=== PATIENT | male | born 1970 | race Hispanic/Latino ===

== ENCOUNTER 2018-06-10 08:51 | Inpatient (IN) | payer MEDICAID ==
[2018-06-10 08:53] VITALS: O2SAT 100; BMI 37.8
--- NOTE | 2018-06-10 10:03 | ED PDOC ---
HPI: Psych/Substance Abuse Time Seen by Provider: 06/10/18 09:09 Chief Complaint (Nursing): Psychiatric Evaluation Chief Complaint (Provider): Psychiatric Evaluation History Per: Patient History/Exam Limitations: no limitations Onset/Duration Of Symptoms: Days Current Symptoms Are (Timing): Still Present Associated Symptoms: Depression, Suicidal Thoughts, Suicidal Plan Additional Complaint(s): 48 year old male with a past medical history of depression and hypertension who is presenting to the ED for evaluation of active suicidal ideation with plan and recent attempts. Patient states that this morning he called mobile crisis from a bridge and yesterday attempted to wrap a rope around his neck, but did not hang himself because he states it was "taking too long" and abandoned the attempt. He also reports that he recently bought sleeping pills but realized it would not be a fatal overdose so he did not attempt it. Patient reports stressors from a complicated marriage and job difficulties. Patient has one prior admission in Fall of 2017 for depression but once discharged he never followed up and is not taking any medications. He also denies any alcohol or drug abuse and denies any physical complaints including neck pain, chest pain, or headaches. PMD: can't recall name Past Medical History Reviewed: Historical Data, Nursing Documentation, Vital Signs Vital Signs: Last Vital Signs Temp 98.2 F 06/10/18 08:53 Pulse 81 06/10/18 08:53 Resp 17 06/10/18 08:53 BP 211/144 H 06/10/18 08:53 Pulse Ox 100 06/10/18 08:53 - Medical History PMH: Depression, HTN - Surgical History Surgical History: No Surg Hx - Family History Family History: States: Unknown Family Hx - Social History Current smoker - smoking cessation education provided: No Alcohol: Social Drugs: Denies - Home Medications Home Medications: Ambulatory Orders Medication Instructions Recorded Aspirin [Ecotrin] 81 mg PO DAILY 06/10/18 Losartan [Cozaar] 25 mg PO DAILY 06/10/18 Mirtazapine [Remeron] 30 mg PO HS 06/10/18 amLODIPine [Norvasc] 5 mg PO DAILY 06/10/18 hydroCHLOROthiazide [Hydrodiuril] 25 mg PO DAILY 06/10/18 - Allergies Allergies/Adverse Reactions: Allergies Allergy/AdvReac Type Severity Reaction Status Date / Time No Known Allergies Allergy Verified 03/13/19 09:04 Review of Systems Cardiovascular: Negative for: Chest Pain Musculoskeletal: Negative for: Neck Pain Neurological: Negative for: Headache Psych: Positive for: Depression, Suicidal ideation (with plan ). Negative for: Psychosis Physical Exam - Reviewed Nursing Documentation Reviewed: Yes Vital Signs Reviewed: Yes - Physical Exam Appears: Positive for: Non-toxic, No Acute Distress Head Exam: Positive for: ATRAUMATIC, NORMAL INSPECTION, NORMOCEPHALIC Skin: Positive for: Normal Color, Warm, DRY Eye Exam: Positive for: EOMI, Normal appearance, PERRL ENT: Positive for: Normal ENT Inspection Neck: Positive for: Normal (but with minor ecchymosis laterally no tenderness and full ROM, no palpable hematoma or lacerations ), Painless ROM, Supple Cardiovascular/Chest: Positive for: Regular Rate, Rhythm. Negative for: Murmur Respiratory: Positive for: Normal Breath Sounds. Negative for: Respiratory Distress Gastrointestinal/Abdominal: Positive for: Normal Exam, Soft. Negative for: Tenderness Extremity: Positive for: Normal ROM. Negative for: Deformity, Swelling Neurological/Psych: Positive for: Awake, Alert, Normal Tone, Oriented, Mood/Affect (depressed ), Other (fair insight, poor judgement ). Negative for: Motor/Sensory Deficits - Laboratory Results Result Diagrams: 06/10/18 10:00 06/10/18 10:00 - ECG ECG: Positive for: Interpreted By Me ECG Rhythm: Positive for: Normal QRS, Normal ST Segment, Sinus Rhythm Rate: 80 O2 Sat by Pulse Oximetry: 100 (RA) Pulse Ox Interpretation: Normal - Radiology X-Ray: Read By Radiologist X-Ray Interpretation: No Acute Disease Medical Decision Making Medical Decision Making: Time: 9:36 Plan: 1:1 observation with labs for medical clearance and crisis evaluation Orders: --EKG --Alcohol Serum --CMP --Drug Screen --Troponin --CBC --1:1 Observation --Urinalysis Patient attempted to strangulate self yesterday but currently has no neck pain, SOB or clinical evidence to suggest imaging is currently indicated. He has FROM of neck without stridor, pain or discomfort. labs reviewed and clinically unremarkable EKG reviewed clonidine 0.2mg PO initiated for accelerated HTN, but patient remains a symptomatic. Crisis eval performed and recommends admission Remains 1:1 observation Medically stable for psychiatric admission, will require medical consult on floor for management of asymptomatic hypertension. BP improving in ED, 179/101 on re-eval 1115am. 1230p BP 154/92, remains stable for psych admission. Care transferred to psychiatric/crisis team for inpatient management. --- Scribe Attestation: Documented by Mini Mccollum, acting as a scribe for Nito Ayoub DO. Provider Scribe Attestation: All medical record entries made by the Scribe were at my direction and personally dictated by me. I have reviewed the chart and agree that the record accurately reflects my personal performance of the history, physical exam, medical decision making, and the department course for this patient. I have also personally directed, reviewed, and agree with the discharge instructions and disposition. Disposition - Clinical Impression Clinical Impression: Depression, Hypertension - Patient ED Disposition Is Patient to be Admitted: Yes Counseled Patient/Family Regarding: Studies Performed - Disposition Disposition Time: 10:55 Condition: STABLE - Pt Status Changed To: Hospital Disposition Of: Inpatient - Admit Certification Admit to Inpatient:: After my assessment, the patient will require hospitalization for at least two midnights. This is because of the severity of symptoms shown, intensity of services needed, and/or the medical risk in this patient being treated as an outpatient.
[2018-06-10 10:12] LABS: BASO % 0.5 % (0.0-2.0); EOS # 0.2 K/uL (0.0-0.7); EOS % 2.6 % (0.0-4.0); HEMOGLOBIN 14.1 g/dL (12.0-18.0); LYMPH # 1.8 K/uL (1.0-4.3); LYMPH % 29.1 % (20.0-40.0); MEAN CELL VOLUME 88.9 fl (80.0-94.0); MEAN CORPUSCULAR HEMOGLOBIN 29.1 pg (27.0-31.0); MEAN CORPUSCULAR HGB CONC 32.8 g/dL (33.0-37.0); MEAN PLATELET VOLUME 8.5 fl (7.2-11.7); MONO # 0.4 K/uL (0.0-0.8); MONO % 7.3 % (0.0-10.0); NEUT # 3.7 K/uL (1.8-7.0); NEUT % 60.5 % (50.0-75.0); NRBC % 0.1 % (0.0-0.0); RBC 4.86 Mil/uL (4.40-5.90); RED CELL DISTRIBUTION WIDTH 13.4 % (11.5-14.5); WHITE BLOOD COUNT 6.1 K/uL (4.8-10.8)
[2018-06-10 10:21] LABS: ALB/GLOB RATIO 1.5 (1.0-2.1); ALBUMIN 4.8 g/dL (3.5-5.0); ALT/SGPT 79 U/L (21-72); AST/SGOT 40 U/L (17-59); BLOOD UREA NITROGEN 13 mg/dl (9-20); CALCIUM 10.1 mg/dL (8.4-10.2); GFR NON-AFRICAN AMERICAN 54
--- NOTE | 2018-06-10 11:43 | RAD ---
Date of service: 06/10/2018 HISTORY: medical clearance COMPARISON: No prior. FINDINGS: LUNGS: No active pulmonary disease. PLEURA: No significant pleural effusion identified, no pneumothorax apparent. CARDIOVASCULAR: No aortic atherosclerotic calcification present. Normal cardiac size. No pulmonary vascular congestion. OSSEOUS STRUCTURES: Thoracic spondylosis. VISUALIZED UPPER ABDOMEN: Normal. OTHER FINDINGS: None. IMPRESSION: No active disease.
[2018-06-10 12:26] LABS: URINE BILIRUBIN NEGATIVE (NEGATIVE); URINE BLOOD NEGATIVE (NEGATIVE); URINE CLARITY CLEAR (Clear); URINE COLOR YELLOW (YELLOW); URINE GLUCOSE (UA) NEG (NEGATIVE); URINE LEUKOCYTE ESTERASE NEG Leu/uL (Negative); URINE PROTEIN NEGATIVE (NEGATIVE); URINE UROBILINOGEN 0.2-1.0 mg/dL (0.2-1.0)
[2018-06-10 12:34] LABS: BARBITURATES, UR NEGATIVE (NEGATIVE); BENZODIAZEPINES, UR NEGATIVE (NEGATIVE); OPIATES, UR NEGATIVE (NEGATIVE); PHENCYCLIDINE, UR NEGATIVE (NEGATIVE)
[2018-06-10] MEDS ORDERED: Alum-Mag Hydrox-Simethicone Susp (30 mL) PO PRN (15:57)
[2018-06-10] MEDS ORDERED: Magnesium Hydroxide Susp 30 ml UD PO PRN (15:57)
[2018-06-10] MEDS ORDERED: DiphenhydrAMINE 50 mg/ml Inj IM PRN (15:57)
--- NOTE | 2018-06-10 16:37 | CP.PCM.CON ---
History of Present Illness - History of Present Illness History of Present Illness: 48 yo male with history of HTN admitted to psyche unit because of worsening depression and suicidal ideation Review of Systems - Review of Systems All systems: reviewed and no additional remarkable complaints except (aside from those mentioned above, 12 point system review were negative by me) Past Patient History - Tetanus Immunizations Tetanus Immunization: Unknown - Past Social History Smoking Status: Never Smoked Chewing Tobacco Use: No Cigar Use: No Alcohol: Social Drugs: Denies - CARDIAC Hx Hypertension: Yes - PULMONARY Hx Tuberculosis: No - NEUROLOGICAL HX Cerebrovascular Accident: No Hx Seizures: No - HEENT Other/Comment: wears eyeglasses for near-sightedness - HEMATOLOGICAL/ONCOLOGICAL Hx Cancer: No Hx Human Immunodeficiency Virus (HIV): No - GENITOURINARY/GYNECOLOGICAL Hx Sexually Transmitted Disorders: No - PSYCHIATRIC Hx Depression: Yes - SURGICAL HISTORY Hx Surgeries: No - ANESTHESIA Hx Anesthesia: No Meds Allergies/Adverse Reactions: Allergies Allergy/AdvReac Type Severity Reaction Status Date / Time cherries AdvReac ITCHING Uncoded 06/10/18 19:11 - Medications Medications: Current Medications Acetaminophen (Tylenol 325mg Tab) 650 mg PO Q4 PRN PRN Reason: Pain, moderate (4-7) Al Hydrox/Mg Hydrox/Simethicone (Maalox Plus 30 Ml) 30 ml PO Q4 PRN PRN Reason: Dyspepsia Amlodipine Besylate (Norvasc) 5 mg PO DAILY [facility] Last Admin: 06/10/18 16:24 Dose: 5 mg Aspirin (Ecotrin) 81 mg PO DAILY [facility] Diphenhydramine HCl (Benadryl) 50 mg IM Q6 PRN PRN Reason: Extrapyramidal S/S Unable PO Diphenhydramine HCl (Benadryl) 50 mg PO Q6 PRN PRN Reason: Extrapyramidal Symptoms Haloperidol (Haldol) 5 mg PO Q4 PRN PRN Reason: Agitation Haloperidol Lactate (Haldol) 5 mg IM Q4 PRN PRN Reason: Agitation, Unable to Take PO Hydrochlorothiazide (Hydrodiuril) 25 mg PO DAILY [facility] Last Admin: 06/10/18 16:24 Dose: 25 mg Lorazepam (Ativan) 2 mg IM Q4 PRN PRN Reason: Anxiety/Agitation,Unable PO Losartan Potassium (Cozaar) 25 mg PO DAILY [facility] Last Admin: 06/10/18 16:24 Dose: 25 mg Magnesium Hydroxide (Milk Of Magnesia) 30 ml PO HS PRN PRN Reason: Constipation Mirtazapine (Remeron) 15 mg PO HS [facility] Physical Exam - Constitutional Appears: No Acute Distress - Head Exam Head Exam: ATRAUMATIC - Eye Exam Eye Exam: absent: Scleral icterus - ENT Exam ENT Exam: Mucous Membranes Moist - Neck Exam Neck exam: Negative for: Meningismus - Respiratory Exam Respiratory Exam: absent: Rales, Rhonchi, Wheezes, Respiratory Distress - Cardiovascular Exam Cardiovascular Exam: REGULAR RHYTHM, +S1, +S2 - GI/Abdominal Exam GI & Abdominal Exam: Soft. absent: Tenderness - Rectal Exam Rectal Exam: Deferred - Neurological Exam Neurological exam: Alert, Oriented x3 - Psychiatric Exam Psychiatric exam: Normal Affect - Skin Skin Exam: Dry, Intact Results - Vital Signs Recent Vital Signs: Last Vital Signs Temp 97.8 F 06/10/18 16:02 Pulse 70 06/10/18 16:24 Resp 18 06/10/18 16:02 BP 171/108 H 06/10/18 16:24 Pulse Ox 100 06/10/18 12:46 - Labs Result Diagrams: 06/10/18 10:00 06/10/18 10:00 Labs: Laboratory Results - last 24 hr 06/10/18 06/10/18 06/10/18 10:00 10:00 11:55 WBC 6.1 RBC 4.86 Hgb 14.1 Hct 43.2 MCV 88.9 MCH 29.1 MCHC 32.8 L RDW 13.4 Plt Count 220 MPV 8.5 Neut % (Auto) 60.5 Lymph % (Auto) 29.1 Coos % (Auto) 7.3 Eos % (Auto) 2.6 Baso % (Auto) 0.5 Neut # (Auto) 3.7 Lymph # (Auto) 1.8 [place] # (Auto) 0.4 Eos # (Auto) 0.2 Baso # (Auto) 0.0 Sodium 147 Potassium 3.6 Chloride 106 Carbon Dioxide 29 Anion Gap 16 BUN 13 Creatinine 1.4 Est GFR ( Amer) > 60 Est GFR (Non-Af Amer) 54 Random Glucose 96 Calcium 10.1 Total Bilirubin 1.1 AST 40 ALT 79 H Alkaline Phosphatase 37 L Troponin I 0.0160 Total Protein 8.0 Albumin 4.8 Globulin 3.2 Albumin/Globulin Ratio 1.5 Urine Color Urine Clarity Urine pH Ur Specific [place] Urine Protein Urine Glucose (UA) Urine Ketones Urine Blood Urine Nitrate Urine Bilirubin Urine Urobilinogen Ur Leukocyte Esterase Urine RBC (Auto) Urine Microscopic WBC Urine Opiates Screen Negative Urine Methadone Screen Negative Ur Barbiturates Screen Negative Ur Phencyclidine Scrn Negative Ur Amphetamines Screen Negative U Benzodiazepines Scrn Negative U Oth Cocaine Metabols Negative U Cannabinoids Screen Negative Alcohol, Quantitative < 10 06/10/18 11:55 WBC RBC Hgb Hct MCV MCH MCHC RDW Plt Count MPV Neut % (Auto) Lymph % (Auto) [place] % (Auto) Eos % (Auto) Baso % (Auto) Neut # (Auto) Lymph # (Auto) [place] # (Auto) Eos # (Auto) Baso # (Auto) Sodium Potassium Chloride Carbon Dioxide Anion Gap BUN Creatinine Est GFR ( Amer) Est GFR (Non-Af Amer) Random Glucose Calcium Total Bilirubin AST ALT Alkaline Phosphatase Troponin I Total Protein Albumin Globulin Albumin/Globulin Ratio Urine Color Yellow Urine Clarity Clear Urine pH 6.0 Ur Specific [place] 1.014 Urine Protein Negative Urine Glucose (UA) Neg Urine Ketones Negative Urine Blood Negative Urine Nitrate Negative Urine Bilirubin Negative Urine Urobilinogen 0.2-1.0 Ur Leukocyte Esterase Neg Urine RBC (Auto) 3 Urine Microscopic WBC 1 Urine Opiates Screen Urine Methadone Screen Ur Barbiturates Screen Ur Phencyclidine Scrn Ur Amphetamines Screen U Benzodiazepines Scrn U Oth Cocaine Metabols U Cannabinoids Screen Alcohol, Quantitative Assessment & Plan (1) Depression Status: Acute Comment: psyche is managing (2) Hypertension Status: Chronic Comment: BP controlled. continue Amlodipine, HCTZ and Losartan
--- NOTE | 2018-06-10 17:15 | PCM.BM ---
<Keya Cherry - Last Filed: 06/10/18 17:13> Treatment Plan Problems - Problems identified on initial assessmt Hopelessness/helplessness Date Initiated: 06/10/18 Time Initiated: 17:13 Assessment reference: NA Status: Active Medication Nonadherence Date Initiated: 06/10/18 Time Initiated: 17:13 Assessment reference: NA Status: Active Self Esteem Disturbance Date Initiated: 06/10/18 Time Initiated: 17:14 Assessment reference: NA Status: Active Treatment assets and liabiliti Patient Assests: cooperative, ADL independent Patient Liabilities: financial problems - Milieu Protocol Maintain good personal hygiene: daily Encourage regular showers, every shift Remind patient to perform daily oral care, every shift Assist patient to perform ADL's Conduct patient checks and document Observation sheet: Q15 minutes Maintain personal safety: every shift Educate patient to report safety concerns to staff, every shift Monitor environment for contraband/sharps Medication safety: Monitor for expected outcome, potential side effects: every shift, Assess barriers to learning: every shift, Assess readiness for medication education: every shift <Ora Martinez - Last Filed: 06/11/18 15:56> - Diagnosis (1) Major depression Status: Acute Interventions: psychotherapy pharmacotherapy 06/11/18 15:56 <Brooklyn Arzola - Last Filed: 06/12/18 16:14> Treatment assets and liabiliti Patient Assests: adapts well, cooperative, educated (Pt. 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 ), poor support system (Pt. reports having a circumstantially supportive relationship with 2 cousins ([place]) and an aunt in the [place] relationship conflicts (Pt. reports discord with secondary to rece nt financial stressors.) Family Contact Family involvement: Family/SO is involved Family contact: Patient agrees to contact, Family has been contacted by patient, Telephone contact initiated by staff Family contact comment: Depot Manager placed call to pts to discss precursors to pts hospitalization, collect further collateral, and address any family concerns. Phone rang twice before typewriter ribbon winder was forwarded to an unidentified voicemail. Pt. reports that does not pick-up phone calls and will only respond to a text. Depot Manager requested that pt. inform pts to expect a call from [facility] staff. - Goals for Treatment Patient goals for treatment: Patient to continue stabilization on 3NP through medication management and group/supportive therapy to address sxs of depression and eliminate SI. Patient to be encouraged to attend groups regularly to promote self-awareness, goal setting, and improve insight, compliance, coping skills and self-esteem. Patient to be provided with referral for appropriate level of aftercare to reduce risk of future hospitalizations and ensure safety in the community. Pt. identified finding employment and receiving assistance with rent payments as primary tx goal. Emotional support and validation was provided. Tx team emphasized importance of prioritizing mental health tx to ensure saftey and improving functioning in the community. Pt. identified "feeling better" as primary tx goal. Discharge/Continuing Care - Education Needs Education Needs: Patient Medication, Patient Diagnosis/Disease Process, Patient Coping Skills, Patient Community resources, Patient Aftercare Safety Plan - Discharge Discharge Criteria: Tolerates medication w/o severe side effects, Free of Suicidal thoughts, Normal sleep pattern, Ability to care for self Discharge to:: Home - Treatment Team Participation Patient/Family/SO Statement: 06/12/18 16:11 Pt. attended tx team this morning to discuss progress on 3NP and tx goals. Pt. continues to report sxs of depression as exhibited by feelings of hopelessness and sadness in context of financial strain. Pt. reported "I don't want to be homeless. If you can help me with that, thats why I feel this way." Pt. did confirm that he has not yet been evicted and can return home upon discharge. Medication management and recommended aftercare referrals discussed at length. Pt. agreeable. Pt. visible on 3NP and observed socializing appropriately with peers. No harmful bxs noted. Thoughts are clear and connected. Discussed with Family/SO: No Was Patient/Family/SO present at Treatment Team Meeting: Yes
--- NOTE | 2018-06-11 09:14 | CARD ---
APPROVED REPORT Date of service: 06/10/2018 EKG Measurement Heart [id number] <Conclusion> Normal sinus rhythm Possible Left atrial enlargement Borderline ECG
--- NOTE | 2018-06-11 16:08 | PCM.PSYCH ---
Initial Psychiatric Evaluation - Initial Psychiatric Evaluation Chief Complaint (in patient's own words): I want to end my life History of Present Illness and Precipitating Events: pt is 48 ys old male with previous diagnosis of depression presented to ER reported having suicidal ideation with plan to hang himself or jump off the bridge pt has been diagnosed with depression currently non compliant with treatment, he stated he has been increasingly depressed in the context of severe financial stress and due to marital problems, pt also reported that his has taken all his money and he currently is unable to pay his rent and threatened to be homeless pt on the unit presented with depressed mood and affect, continues to have passive suicidal ideation without active paln on the unit, rreported poor sleep feeling hopeless and helpless, denied command hallucinations denied substance use Current Medications: Active Medications Generic Name Dose Route Start Last Admin Trade Name Freq PRN Reason Stop Dose Admin Acetaminophen 650 mg 06/10/18 15:57 Tylenol 325mg Tab PO Q4 PRN Pain, moderate (4-7) Al Hydrox/Mg Hydrox/Simethicone 30 ml 06/10/18 15:57 Maalox Plus 30 Ml PO Q4 PRN Dyspepsia Amlodipine Besylate 5 mg 06/10/18 16:00 06/11/18 08:50 Norvasc PO 5 mg DAILY [facility] Administration Aspirin 81 mg 06/11/18 09:00 06/11/18 08:51 Ecotrin PO 81 mg DAILY [facility] Administration Diphenhydramine HCl 50 mg 06/10/18 15:57 Benadryl IM Q6 PRN Extrapyramidal S/S Unable PO Diphenhydramine HCl 50 mg 06/10/18 15:57 Benadryl PO Q6 PRN Extrapyramidal Symptoms Haloperidol 5 mg 06/10/18 15:57 Haldol PO Q4 PRN Agitation Haloperidol Lactate 5 mg 06/10/18 15:57 Haldol IM Q4 PRN Agitation, Unable to Take PO Hydrochlorothiazide 25 mg 06/10/18 16:00 06/11/18 08:50 Hydrodiuril PO 25 mg DAILY [facility] Administration Lorazepam 2 mg 06/10/18 15:57 Ativan IM Q4 PRN Anxiety/Agitation,Unable PO Losartan Potassium 25 mg 06/10/18 16:00 06/11/18 08:50 Cozaar PO 25 mg DAILY [facility] Administration Magnesium Hydroxide 30 ml 06/10/18 15:57 Milk Of Magnesia PO HS PRN Constipation Mirtazapine 15 mg 06/10/18 22:00 06/10/18 21:12 Remeron PO 15 mg HS [facility] Administration Past Psychiatric History - Past Psychiatric History Explanation of prior treatment: hx of previous hospitalization at [facility] [place] after a suicidal attempt History of ETOH/Drug Use: denied Pertinent Medical Hx (Current Medical&Sleep Prob, Allergies): Allergies Allergy/AdvReac Type Severity Reaction Status Date / Time cherries AdvReac ITCHING Uncoded 06/10/18 19:11 Aspirin [Ecotrin] 81 mg PO DAILY 06/10/18 Losartan [Cozaar] 25 mg PO DAILY 06/10/18 Mirtazapine [Remeron] 30 mg PO HS 06/10/18 amLODIPine [Norvasc] 5 mg PO DAILY 06/10/18 hydroCHLOROthiazide [Hydrodiuril] 25 mg PO DAILY 06/10/18 Mental Status Examination - Personal Presentation Personal Presentation: Looks older than stated age - Affect Affect: Constricted, Depressed - Motor Activity Motor Activity: Psychomotor Retardation - Reliability in Providing Information Reliability in Providing Information: Fair - Speech Speech: Relevant - Mood Mood: Depressed, Anxious - Formal Thought Process Formal Thought Process: Circumstantial - Obsessions/Compulsions Obsessions: No Compulsions: No - Cognitive Functions Orientation: Person, Place Attention/Concentration: Easily distracted Abstract Thinking: [place] Judgement: Imparied, as evidence by: Poor judgement - Risk Risk: Suicidal, Diminished functioning - Strength & Assets Inventory Strength & Assets Inventory: Life experience - Limitations Additional comments: poor compliance DSM 5 DX - DSM 5 DSM 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
--- NOTE | 2018-06-12 12:33 | PCM.PYCHPN ---
Psychiatric Progress Note - Psychiatric Progress Note Patient seen today, length of contact: pt evaluated discussed withteam chart reviewed Patient Chief Complaint: I cant live in a prison Problems Identified/Issues Discussed: pt evaluated with treatment team, presenting with depressed mood and affect, related that to the current financial difficulties and possibility of being evicted from his home , continues to report passive suicidal ideation without active plan on the unit , CBT provided ,pt reporting low energy and motivation discussed with discontinuing remeron and starting zoloft, encouraged pt to attend groups, pt denied any current perceptual disturbances Medical Problems: hx of previous hospitalization at [facility] [place] after a suicidal attempt DSM 5 Symptoms Update: major depression recurrent Medication Change: No Medical Record Reviewed: Yes Mental Status Examination - Cognitive Function Orientation: Person, Place, Situation Memory: Intact Attention: WNL Concentration: WNL Fund of Knowledge: Poor Decription of patient's judgement and insights: partial insight poor judgment - Mood Mood: Depressed, Anxious - Affect Affect: Constricted, Depressed - Speech Speech: Soft - Formal Thought Process Formal Thought Process: Circumstantial - Suicidal Ideation Suicidal Ideation: No - Homicidal Ideation Homicidal Ideation: No Goal/Treatment Plan - Goal/Treatment Plan Need for Continued Stay: Severe depression anxiety, Discharge may exacerbated symptoms Progress Toward Problem(s) and Goals/Treatment Plan: discontinue remeron start zoloft 25mg daily start trazodone 100mg qhs cbt group and supportive therapy medical consult for hypertension
--- NOTE | 2018-06-13 08:38 | PCM.PYCHPN ---
Psychiatric Progress Note - Psychiatric Progress Note Patient seen today, length of contact: pt evaluated discussed withteam chart reviewed Patient Chief Complaint: pt has h/o severe depression admitted because of severe depression and suicidal attempt.pt is still depressed as still stressed out because of poor financial problems and tolerating zoloft well .pt denies suicidal ideation but remains with poor insight and need further stabilization. Medication Change: No Medical Record Reviewed: Yes Mental Status Examination - Cognitive Function Orientation: Person, Place, Situation Memory: Intact Attention: WNL Concentration: WNL Fund of Knowledge: Poor - Mood Mood: Depressed, Anxious - Affect Affect: Constricted, Depressed - Speech Speech: Soft - Formal Thought Process Formal Thought Process: Circumstantial - Suicidal Ideation Suicidal Ideation: No - Homicidal Ideation Homicidal Ideation: No Goal/Treatment Plan - Goal/Treatment Plan Need for Continued Stay: Severe depression anxiety, Discharge may exacerbated symptoms Progress Toward Problem(s) and Goals/Treatment Plan: Will increase zoloft to 50=mg daily to stabilize the mood and engage in therapy and groups Disposition as per dr rothman.
--- NOTE | 2018-06-14 13:11 | PCM.PYCHPN ---
Psychiatric Progress Note - Psychiatric Progress Note Patient seen today, length of contact: pt evaluated discussed withteam chart reviewed Patient Chief Complaint: pt has remained depressed and felt dry mouth last night .pt has h/o severe depression admitted because of severe depression and suicidal attempt.pt is still depressed as still stressed out because of poor financial problems and tolerating zoloft well .pt denies suicidal ideation but remains with poor insight and need further stabilization. Medication Change: No Medical Record Reviewed: Yes Mental Status Examination - Cognitive Function Orientation: Person, Place, Situation Memory: Intact Attention: WNL Concentration: WNL Fund of Knowledge: Poor - Mood Mood: Depressed, Anxious - Affect Affect: Constricted, Depressed - Speech Speech: Soft - Formal Thought Process Formal Thought Process: Circumstantial - Suicidal Ideation Suicidal Ideation: No - Homicidal Ideation Homicidal Ideation: No Goal/Treatment Plan - Goal/Treatment Plan Need for Continued Stay: Severe depression anxiety, Discharge may exacerbated symptoms Progress Toward Problem(s) and Goals/Treatment Plan: Will increase zoloft to 50=mg daily to stabilize the mood and engage in therapy and groups Disposition as per dr rothman.
--- NOTE | 2018-06-15 14:21 | PCM.PYCHPN ---
Psychiatric Progress Note - Psychiatric Progress Note Patient seen today, length of contact: pt evaluated discussed withteam chart reviewed Patient Chief Complaint: I still feel tired Problems Identified/Issues Discussed: pt evaluated on the unit, seen interacting with other patients , attending groups, no reported changes in appetite, during interview pt reported continues to feel concerned about his financial and housing situation , discussed possible referral to [facility] help with the housing situation, no reported side effects of zoloft, pt denied any current suicidal or homicidal ideaion denied perceptual disturbances Medical Problems: hx of previous hospitalization at [facility] [place] after a suicidal attempt DSM 5 Symptoms Update: major depression recurrent Medication Change: No Medical Record Reviewed: Yes Mental Status Examination - Cognitive Function Orientation: Person, Place, Situation Memory: Intact Attention: WNL Concentration: WNL Fund of Knowledge: Poor - Mood Mood: Depressed, Anxious - Affect Affect: Constricted, Depressed - Speech Speech: Soft - Formal Thought Process Formal Thought Process: Circumstantial - Suicidal Ideation Suicidal Ideation: No - Homicidal Ideation Homicidal Ideation: No Goal/Treatment Plan - Goal/Treatment Plan Need for Continued Stay: Severe depression anxiety, Discharge may exacerbated symptoms Progress Toward Problem(s) and Goals/Treatment Plan: zoloft 50mg daily trazodone 100mg qhs cbt group and supportive therapy
[2018-06-16 09:13] VITALS: BP 154/101
[2018-06-16 10:01] VITALS: PULSE 89; RESP 19; TEMP 97.6
--- NOTE | 2018-06-16 10:38 | PCM.PYCHDC ---
Mental Status Examination - Mental Status Examination Orientation: Person, Place, Situation Memory: Intact Mood: Neutral Affect: Broad Speech: Appropriate Attention: WNL Concentration: WNL Association: WNL Fund of Knowledge: WNL Formal Thought Process: Circumstantial Description of patient's judgement and insight: partial insight poor judgment Psychotic Thoughts and Behaviors: pt on discharge denied any psychotic symptoms, non elicited Suicidal Ideation: No Current Homicidal Ideation?: No Discharge Summary - Discharge Note Reason for Hospitalization: pt is 48 ys old male with previous diagnosis of depression presented to ER reported having suicidal ideation with plan to hang himself or jump off the bridge pt has been diagnosed with depression currently non compliant with treatment, he stated he has been increasingly depressed in the context of severe financial stress and due to marital problems, pt also reported that his has taken all his money and he currently is unable to pay his rent and threatened to be homeless pt on the unit presented with depressed mood and affect, continues to have passive suicidal ideation without active paln on the unit, rreported poor sleep feeling hopeless and helpless, denied command hallucinations denied substance use Consultations:: List each consultation separately and include: 1. Reason for request. 2. Findings. 3. Follow-up Summary of Hospital Course include:: 1. Description of specific treatment plan utilized for patients during their course of treatmen. 2. Summarize the time- course for resolution of acute symptoms and/or regressed behaviors. 3. Describe issues identified and worked on during hospitalization. 4. Describe medication utilized. 5. Describe medical problems identified and treated. 6. Reassessment of suicide risk Summary of Hospital Course: pton admission presented with depressed mood and affect, reported poor sleep, with early insomnia pt was started on zoloft, it was increased to 50mg , trazodone increased to 100mg CBT group and supportive therapy was provided pt was compliant with medications, attended groups, no reported side effects of medications, on discharge mental status was stable , pt denied any current suicidal or homicidal ideation denied perceptual disturbances follow up arranged by [employer] at outpatient clinic - Diagnosis (1) Major depression Current Visit: Yes Status: Acute - Final Diagnosis (DSM 5) Condition upon Discharge: STABLE DSM 5: major depression recurrent severe without psychotic features Disposition: HOME/ ROUTINE Follow-up Treatment Plan: outpatient clinic Prescriptions/Medication Reconciliation: Sertraline [Zoloft] 50 mg PO DAILY 30 Days #30 tab traZODone [Desyrel] 100 mg PO HS 30 Days #30 tab - Antipsychotic Medications Pt discharged on 2 or more routine antipsychotic medications: No
== END 2018-06-16 15:38 | disposition home or self-care (01) | DRG 751 ==
LOC: H.ER 08:51 → H.ERHOLD 11:13 → H.PSYCH 15:15
PROVIDERS: ADMIT Psychiatry & Neurology Psychiatry; ATTEND Psychiatry & Neurology Psychiatry
PROC: GZHZZZZ Group Psychotherapy (ICD-10-PCS; principal; 2018-06-10)
PROC: GZ58ZZZ Individual Psychotherapy, Cognitive-Behavioral (ICD-10-PCS; 2018-06-10)
PROC: GZ56ZZZ Individual Psychotherapy, Supportive (ICD-10-PCS; 2018-06-10)
DX: F33.2 Major depressive disorder, recurrent severe without psychotic features (principal); R45.851 Suicidal ideations; Z91.19 Patient's noncompliance with other medical treatment and regimen; I10 Essential (primary) hypertension; G47.00 Insomnia, unspecified; Z59.9 Problem related to housing and economic circumstances, unspecified; Z63.0 Problems in relationship with spouse or partner; Z79.82 Long term (current) use of aspirin

== ENCOUNTER 2018-07-23 07:32 | Emergency (ER) | payer MEDICAID ==
[2018-07-23 07:37] VITALS: TEMP 97.8; O2SAT 99
[2018-07-23 07:38] VITALS: BMI 40.6
--- NOTE | 2018-07-23 08:16 | ED PDOC ---
HPI: Hypertension/Hypotension Time Seen by Provider: 07/23/18 07:45 Chief Complaint (Nursing): High Blood Pressure Chief Complaint (Provider): High Blood Pressure History Per: Patient History/Exam Limitations: no limitations Onset/Duration Of Symptoms: Days (x1 day) Additional Complaint(s): Patient is a 48 year old male with a past medical history of HTN and depression, who presents to the emergency department complaining of headache and palpitations since last night. He reports this prevented him from sleeping all night. He checked his blood pressure last night and found it be 160/110. Patient denies having any focal weakness or changes in vision. PMD: Nadir Shi Jr. Past Medical History Reviewed: Historical Data, Nursing Documentation, Vital Signs Vital Signs: Last Vital Signs Temp 97.8 F 07/23/18 07:36 Pulse 97 H 07/23/18 07:36 Resp 19 07/23/18 07:36 BP 154/85 H 07/23/18 07:36 Pulse Ox 99 07/23/18 07:36 - Medical History PMH: Depression, HTN Denies: Diabetes, Hepatitis, HIV, Mitral Valve Prolapse, Peripheral Edema, Chronic Kidney Disease, Seizures, Sexually Transmitted Disease - Surgical History Surgical History: Denies: Pacemaker - Family History Family History: States: Unknown Family Hx - Home Medications Home Medications: Ambulatory Orders Medication Instructions Recorded Aspirin [Ecotrin] 81 mg PO DAILY 06/10/18 Losartan [Cozaar] 25 mg PO DAILY 06/10/18 amLODIPine [Norvasc] 5 mg PO DAILY 06/10/18 hydroCHLOROthiazide [Hydrodiuril] 25 mg PO DAILY 06/10/18 Sertraline [Zoloft] 50 mg PO DAILY 30 Days #30 tab 06/16/18 traZODone [Desyrel] 100 mg PO HS 30 Days #30 tab 06/16/18 - Allergies Allergies/Adverse Reactions: Allergies Allergy/AdvReac Type Severity Reaction Status Date / Time cherries AdvReac ITCHING Uncoded 07/23/18 07:52 Review of Systems ROS Statement: Except As Marked, All Systems Reviewed And Found Negative Eyes: Negative for: Vision Change Cardiovascular: Positive for: Palpitations Neurological: Positive for: Headache. Negative for: Weakness Physical Exam - Reviewed Nursing Documentation Reviewed: Yes Vital Signs Reviewed: Yes - Physical Exam Appears: Positive for: Non-toxic, No Acute Distress Head Exam: Positive for: ATRAUMATIC, NORMOCEPHALIC Skin: Positive for: Normal Color, Warm, Dry Eye Exam: Positive for: Normal appearance, EOMI, PERRL ENT: Positive for: Normal ENT Inspection Neck: Positive for: Normal, Painless ROM, Supple Cardiovascular/Chest: Positive for: Regular Rate, Rhythm. Negative for: Murmur Respiratory: Positive for: Normal Breath Sounds. Negative for: Respiratory Distress Gastrointestinal/Abdominal: Positive for: Normal Exam, Soft. Negative for: Tenderness Back: Positive for: Normal Inspection. Negative for: L CVA Tenderness, R CVA Tenderness, Vertebral Tenderness Extremity: Positive for: Normal ROM. Negative for: Pedal Edema, Deformity Neurological/Psych: Positive for: Awake, Alert, Oriented (x3). Negative for: Motor/Sensory Deficits - ECG O2 Sat by Pulse Oximetry: 99 (RA) Pulse Ox Interpretation: Normal Medical Decision Making Medical Decision Making: Time: 0753 Impression: Headache and palpitations may be attributable to elevated blood pressure. Plan: Will obtain CT, EKG and discuss adjustment of blood pressure medications if necessary. --Head CT without contrast --EKG Time: [address] FINDINGS: HEMORRHAGE: No intracranial hemorrhage. BRAIN: No mass effect or edema. Minimal periventricular white matter lucency adjacent to the frontal horns of the lateral ventricles, consistent with microvascular white matter ischemic change. No evidence of acute infarct. VENTRICLES: Unremarkable. No hydrocephalus. CALVARIUM: Unremarkable. PARANASAL SINUSES: Unremarkable as visualized. No significant inflammatory changes. MASTOID AIR CELLS: Unremarkable as visualized. No inflammatory changes. OTHER FINDINGS: None. IMPRESSION: No intracranial mass, hemorrhage or evidence of acute infarct. Minimal chronic white matter ischemic change. Otherwise unremarkable. BP 145/93 Will increase HCTZ to 50 mg daily Scribe Attestation: Documented by Umberto Diaz, acting as a scribe Sejal Eden MD. Provider Scribe Attestation: All medical record entries made by the Scribe were at my direction and personally dictated by me. I have reviewed the chart and agree that the record accurately reflects my personal performance of the history, physical exam, medical decision making, and the department course for this patient. I have also personally directed, reviewed, and agree with the discharge instructions and disposition. Disposition - Clinical Impression Clinical Impression: Hypertension - Patient ED Disposition Is Patient to be Admitted: No Counseled Patient/Family Regarding: Studies Performed, Diagnosis, Need For Followup - Disposition Disposition: Routine/Home Disposition Time: 09:09 Condition: FAIR Instructions: High Blood Pressure in Adults Forms: [facility] (Frisian)
[2018-07-23 08:31] VITALS: BP 145/93; PULSE 82; RESP 16
--- NOTE | 2018-07-23 08:50 | CT ---
Date of service: 07/23/2018 PROCEDURE: CT HEAD WITHOUT CONTRAST. HISTORY: r/o bleed COMPARISON: None available. TECHNIQUE: Axial computed tomography images were obtained through the head/brain without intravenous contrast. Radiation dose: Total exam DLP = 882.24 mGy-cm. This CT exam was performed using one or more of the following dose reduction techniques: Automated exposure control, adjustment of the mA and/or kV according to patient size, and/or use of iterative reconstruction technique. FINDINGS: HEMORRHAGE: No intracranial hemorrhage. BRAIN: No mass effect or edema. Minimal periventricular white matter lucency adjacent to the frontal horns of the lateral ventricles, consistent with microvascular white matter ischemic change. No evidence of acute infarct. VENTRICLES: Unremarkable. No hydrocephalus. CALVARIUM: Unremarkable. PARANASAL SINUSES: Unremarkable as visualized. No significant inflammatory changes. MASTOID AIR CELLS: Unremarkable as visualized. No inflammatory changes. OTHER FINDINGS: None. IMPRESSION: No intracranial mass, hemorrhage or evidence of acute infarct. Minimal chronic white matter ischemic change. Otherwise unremarkable.
--- NOTE | 2018-07-23 19:06 | CARD ---
APPROVED REPORT Date of service: 07/23/2018 EKG Measurement Heart [id number] <Conclusion> Normal sinus rhythm ST & T wave abnormality, consider lateral ischemia Abnormal ECG
== END 2018-07-23 09:10 | disposition home or self-care (01) ==
LOC: H.ER 07:32
DX: I10 Essential (primary) hypertension (principal)

== ENCOUNTER 2018-07-24 11:04 | Emergency (ER) | payer MEDICAID ==
[2018-07-24 11:10] VITALS: BMI 40.1
[2018-07-24 11:12] VITALS: TEMP 97.8; O2SAT 98
[2018-07-24] MEDS ORDERED: Sodium Chloride 0.9% 1,000 ML IV STA (11:55)
--- NOTE | 2018-07-24 12:14 | ED PDOC ---
HPI: Hypertension/Hypotension Time Seen by Provider: 07/24/18 11:13 Chief Complaint (Nursing): High Blood Pressure History Per: Patient Additional Complaint(s): Pt. states since the weekend he's had an atraumatic, intermittent, non-sudden onset, progressively worsening headache. States headache wraps around his head like a "vice box office manager." He was seen in ED yesterday for same complaint and was told it was likely due to him not taking his HTN meds. States he did end up taking his BP meds since being dc'd from ED. Last night headache returned associated with light sensitivity. Denies nausea, vomiting, fever, chills, head injury, LOC, neck pain/stiffness, chest pain, SOB. Past Medical History Reviewed: Historical Data, Nursing Documentation, Vital Signs Vital Signs: Last Vital Signs Temp 97.8 F 07/24/18 11:10 Pulse 86 07/24/18 11:10 Resp 20 07/24/18 11:10 BP 139/88 07/24/18 11:10 Pulse Ox 98 07/24/18 11:10 - Medical History PMH: Depression, HTN Denies: Diabetes, Hepatitis, HIV, Mitral Valve Prolapse, Peripheral Edema, Chronic Kidney Disease, Seizures, Sexually Transmitted Disease - Surgical History Surgical History: No Surg Hx Denies: Pacemaker - Family History Family History: States: No Known Family Hx - Home Medications Home Medications: Ambulatory Orders Medication Instructions Recorded Aspirin [Ecotrin] 81 mg PO DAILY 06/10/18 Losartan [Cozaar] 25 mg PO DAILY 06/10/18 amLODIPine [Norvasc] 5 mg PO DAILY 06/10/18 hydroCHLOROthiazide [Hydrodiuril] 25 mg PO DAILY 06/10/18 Sertraline [Zoloft] 50 mg PO DAILY 30 Days #30 tab 06/16/18 traZODone [Desyrel] 100 mg PO HS 30 Days #30 tab 06/16/18 Naproxen [Naprosyn] 500 mg PO BID PRN #8 tab 07/24/18 - Allergies Allergies/Adverse Reactions: Allergies Allergy/AdvReac Type Severity Reaction Status Date / Time cherries AdvReac ITCHING Uncoded 07/23/18 07:52 Review of Systems ROS Statement: Except As Marked, All Systems Reviewed And Found Negative Neurological: Positive for: Headache Physical Exam - Physical Exam Appears: Positive for: Well, Non-toxic, No Acute Distress Skin: Positive for: Normal Color, Warm. Negative for: Rash Eye Exam: Positive for: EOMI, Normal appearance, PERRL ENT: Positive for: Normal ENT Inspection Neck: Positive for: Normal, Painless ROM, Supple Cardiovascular/Chest: Positive for: Regular Rate, Rhythm. Negative for: Murmur, Tachycardia Respiratory: Positive for: Normal Breath Sounds Gastrointestinal/Abdominal: Positive for: Soft. Negative for: Tenderness Neurological/Psych: Positive for: Awake, Alert, Symmetric/Intact Strength, Oriented (x3), Gait (steady, unassisted). Negative for: Facial Droop - Laboratory Results Result Diagrams: 07/24/18 12:00 07/24/18 12:00 - ECG O2 Sat by Pulse Oximetry: 98 - Progress ED Course And Treament: Labs, toradol 30mg IV, IV NS bolus x 1 ordered. Re-evaluation Time: 13:40 (Sleeping comfortably. Easily arousable. Reports complete relief of headache. Repeat neuro exam is non-focal. ) Condition: Re-examined, Improved Disposition - Clinical Impression Clinical Impression: Headache - Patient ED Disposition Is Patient to be Admitted: No - Disposition Referrals: [facility] [Outside] Disposition: Routine/Home Disposition Time: 13:40 Condition: IMPROVED Additional Instructions: FOLLOW UP WITH YOUR DOCTOR FOR FURTHER EVALUATION RETURN TO ED IMMEDIATELY IF SYMPTOMS WORSEN KIARA ALARCON, thank you for letting us take care of you today. Your provider was Mylene Crowell MD and you were treated for HEADACHE. The emergency medical care you received today was directed at your acute symptoms. If you were prescribed any medication, please fill it and take as directed. It may take several days for your symptoms to resolve. Return to the Emergency Department if your symptoms worsen, do not improve, or if you have any other problems. Please contact your doctor or call one of the physicians/clinics you have been referred to that are listed on the Patient Visit Information form that is included in your discharge packet. Bring any paperwork you were given at discharge with you along with any medications you are taking to your follow up visit. Our treatment cannot replace ongoing medical care by a primary care provider outside of the emergency department. Thank you for allowing the [facility] team to be part of your care today. If you had an X-Ray or CT scan: A Radiologist will review the ED reading if any change in treatment is needed we will contact you. If you had a blood, urine, or wound culture: It will take several days for the results, if any change in treatment is needed we will contact you. If you had an STI test: It will take 48 hours for the results. Please call after 1 week if you have not heard back. Prescriptions: Naproxen [Naprosyn] 500 mg PO BID PRN #8 tab PRN Reason: Pain Instructions: Headache, Adult (DC) Forms: [facility] (Nigerien) Print Language: MALTESE
[2018-07-24 12:24] LABS: BASO % 0.8 % (0.0-2.0); EOS # 0.2 K/uL (0.0-0.7); EOS % 3.3 % (0.0-4.0); HEMOGLOBIN 13.7 g/dL (12.0-18.0); LYMPH # 1.4 K/uL (1.0-4.3); LYMPH % 29.3 % (20.0-40.0); MEAN CORPUSCULAR HEMOGLOBIN 29.8 pg (27.0-31.0); MEAN CORPUSCULAR HGB CONC 33.5 g/dL (33.0-37.0); MEAN PLATELET VOLUME 8.6 fl (7.2-11.7); MONO # 0.3 K/uL (0.0-0.8); MONO % 6.5 % (0.0-10.0); NEUT % 60.1 % (50.0-75.0); RBC 4.59 Mil/uL (4.40-5.90); RED CELL DISTRIBUTION WIDTH 13.8 % (11.5-14.5); WHITE BLOOD COUNT 4.9 K/uL (4.8-10.8)
[2018-07-24 12:34] LABS: ALB/GLOB RATIO 1.5 (1.0-2.1); ALBUMIN 4.7 g/dL (3.5-5.0); ALT/SGPT 71 U/L (21-72); AST/SGOT 47 U/L (17-59); BLOOD UREA NITROGEN 15 mg/dl (9-20); CALCIUM 9.7 mg/dL (8.4-10.2); GFR NON-AFRICAN AMERICAN > 60
[2018-07-24 12:41] LABS: URINE BILIRUBIN NEGATIVE (NEGATIVE); URINE BLOOD NEGATIVE (NEGATIVE); URINE CLARITY CLEAR (Clear); URINE COLOR YELLOW (YELLOW); URINE GLUCOSE (UA) NEG (NEGATIVE); URINE LEUKOCYTE ESTERASE NEG Leu/uL (Negative); URINE PROTEIN NEGATIVE (NEGATIVE); URINE UROBILINOGEN 0.2-1.0 mg/dL (0.2-1.0)
[2018-07-24 14:29] VITALS: BP 118/78; PULSE 82; RESP 18
== END 2018-07-24 14:28 | disposition home or self-care (01) ==
LOC: H.ER 11:04
DX: R51 Headache (principal); I10 Essential (primary) hypertension
CPT/HCPCS: 80053; 81003; 85025; 85651; 96361; 96374; 99285; J1885; J7030